=== PATIENT | male | born 1970 | race Caucasian/White ===

== ENCOUNTER 2019-12-06 14:28 | Outpatient (REF) | payer BC, SELFPAY | END 2019-12-06 14:29 | disposition home or self-care (01) | LOC: HO.LAB 14:28 | PROVIDERS: Visit Provider Internal Medicine | DX: Z20.828 Contact with and (suspected) exposure to other viral communicable diseases (principal) | CPT/HCPCS: 87635 ==

== ENCOUNTER → 2022-01-12 15:49 | Outpatient (REF) | payer BC, SELFPAY | LOC: HO.SL 15:49 | PROVIDERS: Visit Provider Internal Medicine | DX: G47.33 Obstructive sleep apnea (adult) (pediatric) (principal); R06.83 Snoring | CPT/HCPCS: 95806 ==

== ENCOUNTER 2024-07-31 12:59 | Outpatient (AMB) | payer BC, SELFPAY ==
--- NOTE | 2024-07-31 13:07 | MHC.PC.OV ---
Intake Visit Reasons: L knee pain Allergies shellfish derived [SHELLFISH DERIVED] Allergy (Unknown, Unverified 03/19/20 11:40) CHEST PAIN Medication List - Last Reconciled 07/31/24 by LIZZY Osullivan diclofenac sodium 1% (Voltaren Arthritis Pain) 4 grams topical QID PRN ibuprofen 800 mg PO Q8H PRN tramadol 50 mg PO Q8H PRN HPI HPI Comments History of Present Illness Details 53 year old male presents to the office for evaluation. He is reporting pain in the L knee ongoing for about a week. He had a similar issue about 7 months ago after running a race which improvement with naproxen and icy hot. However, this current episode of knee pain has not been improving despite conservative therapies. He had played hockey about 1 week ago and then did some difficult hiking over the weekend. Since then, has had a constant aching pain that waxes and wanes in severity and can be very uncomfortable. 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 He denies any direct traumatic injury. Denies any instability in the knee. No weakness or paresthesias in the lower extremity. Reports pain is primarily located in the bilateral joint spaces, more prominent in the medial aspect. He denies any exacerbation of pain on stairs but does feel the pain is worse when twisting [id number]. He is concerned because he will be driving to [place] with his sons and given the long driving stretches, he is worried about the pain. ROS: General: No fevers, malaise, unintentional weight loss MSK: see hpi Neuro: No weakness, paresthesias Skin: No rashes or lesions EXAM: Constitutional - Awake and Alert, No apparent distress Eyes - PERRLA, EOMI Cardiovascular - S1S2, RRR, No edema Respiratory - Normal lung expansion, Normal respiratory effort, No respiratory distress, CTA bilaterally Extremities - no calf tenderness bilaterally, no swelling Musculoskeletal - Normal inspection. L knee-no erythema, warmth, swelling, effusion. Tenderness to palpation along the bilateral joint space. Negative Sandra testing. No instability noted with anterior posterior drawer. Full flexion-extension Skin - Warm/Dry Neurological - Alert & oriented x3, 5/5 strength ble Psychological - Appropriate affect [facility] Medical History (Updated 07/31/24 @ 13:44 by LIZZY Osullivan) Familial hypercholesteremia Obstructive sleep apnea No significant past medical history Surgical History (Updated 03/19/20 @ 11:40 by Roxy Jimenez RN) History of left nephrectomy Social History Are you a primary assisted living care manager to a significant other at home: No Do you presently have visiting nurse or other home services: No Coding Level of Care Code New Pt Level 3 (37441) Complex EM visit Add On G2211 Diagnoses Left knee pain M25.562 Assessment & Plan Assessment & Plan (1) Left knee pain: Code(s): M25.562 - Pain in left knee Category: Medical Plan: XR left knee ordered. Recommend NSAIDs or topical diclofenac as well as tylenol prn. Recommend heat/ice. Referred to PT. Given short course of tramadol to use only as needed for severe pain. Masspat reviewed and is appropriate. Advised against driving while taking this medication- reports his sons can drive should he need this. Will also check uric level Plan Follow up for annual. Labs ordered to be completed today. Follow up with PT. Meds as prescribed. XR orderd Orders: Orders PT Evaluation and Treatment 07/31/24 M25.562 - Pain in left knee XR knee LT 3V 07/31/24 M25.562 - Pain in left knee Basic Metabolic Panel 07/31/24 E78.01 - Familial hypercholesterolemia, M25.562 - Pain in left knee Complete Blood Count Auto Diff 07/31/24 E78.01 - Familial hypercholesterolemia, M25.562 - Pain in left knee Hemoglobin A1c 07/31/24 E78.01 - Familial hypercholesterolemia, M25.562 - Pain in left knee Lipid Panel 07/31/24 E78.01 - Familial hypercholesterolemia, M25.562 - Pain in left knee Liver Panel 07/31/24 E78.01 - Familial hypercholesterolemia, M25.562 - Pain in left knee Prostate Specific Antigen 07/31/24 E78.01 - Familial hypercholesterolemia, M25.562 - Pain in left knee Uric Acid 07/31/24 E78.01 - Familial hypercholesterolemia, M25.562 - Pain in left knee Medications: New ibuprofen 800 mg PO Q8H PRN 90 tabs 0RF pain tramadol 50 mg PO Q8H PRN 15 tabs 0RF moderate pain (scale score 5-6) diclofenac sodium 1% (Voltaren Arthritis Pain) apply to single knee, ankle, foot; for foot includes sole/toes/top of foot Do not use together with ibuprofen 4 grams topical QID PRN 100 grams 0RF knee pain
--- OUTSIDE RECORDS SUMMARY | 2024-07-31 15:14 | XMS_ITS | Patient Health Record ---
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 for 1 day(s) 03/06/2020 Active Immunizations Vaccine Route Administration Date Status Comme nts Influenza Unknown 10/23/2019 Administered Social History Tobacco Use: Social History Observation Description Date Details (start date - stop date) Never Smoker NA - NA Tobacco Use/Smoking Question Answer Notes Patient is a nonsmoker Alcohol Screen Question Answer Notes Did you have a drink contain ing alcohol in the past year? Yes How often did you have a dri nk containing alcohol in the past year? Never (0 point) How many drinks did you have on a typical day when you were drinking in the past year? 1 or 2 drinks (0 point) How often did you have 6 or more drinks on one occasion in the past year? Never (0 point) Points 0 Interpretation Negative Problems Problem Type SNOMED Code ICD Code Onset Dates Problem Status W/U Status Risk Notes Problem 590187828 Colon cancer screening (Z12.11) Active confirmed Problem 866039112 Encounter for other preprocedural examination (Z01.818) Active confirmed Plan Of Treatment Future Test Test Name Order Date COLONOSCOPY 03/06/2020 Insurance Providers Payer Name Payer Address Payer Phone Subscriber Number Group Number Insured Name Patient Relationship to Insured Coverage Start Date Coverage End Date [facility] [address] [place], [place] [id number] [phone] [id number] ELEANOR SCHMITZ Self - patient is the insured Medical (General) History Medical History History ICD Code Denies [place],DM,CVA,Lung disease,renal dise ase Surgical History Surgery Date(Month/Year) kidney donor 2000
== END 2024-07-31 13:32 | disposition home or self-care (01) ==
LOC: HO.HMCHD 12:59
PROVIDERS: PCP Physician Assistant; Visit Provider Physician Assistant
DX: M25.562 Pain in left knee (principal)

== ENCOUNTER 2024-08-02 06:05 | Outpatient (REF) | payer BC, SELFPAY ==
--- NOTE | ~2024-08-02 | XR_ITS ---
CLINICAL HISTORY: M25.562 - Pain in left knee 3 view left knee Comparison: None Findings: No acute fracture or dislocation is identified. Soft tissue structures appear within normal limits. IMPRESSION: No acute osseous abnormality is identified. This document has been electronically signed by: Piotr Aguilar on 08/02/2024 07:17:40
--- OUTSIDE RECORDS SUMMARY | 2024-08-02 06:09 | XMS_ITS | Patient Health Record ---
Author Organization 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 Name Role Phone Bennett Meléndez MD Primary Care Provider Unavaila Jose Veras Jr Unavailable Reason For Referral No Information Medications Medication [...] Problem Status W/U Status Risk Notes Problem [id number] Colon cancer screening (Z12.11) Active confirmed Problem 300158040 Encounter for other preprocedural examination (Z01.818) Active confirmed Plan Of Treatment Future Test Test Name Order Date COLONOSCOPY 03/06/2020 Insurance Providers Payer Name Payer Address Payer Phone Subscriber Number Group Number Insured Name Patient Relationship to Insured Coverage Start Date Coverage End Date [facility] [address] [place], [place] [id number] ELEANOR SCHMITZ Self - patient is the insured Medical (General) History Medical History History ICD Code Denies [place],DM,CVA,Lung disease,renal dise ase Surgical History Surgery Date(Month/Year) kidney donor 2000
[2024-08-02 06:28] LABS: MANUAL DIFF FLAG NO
[2024-08-02 07:21] LABS: Basophils Percent Auto 0.4 % (0-2); Eosinophils Absolute Auto 0.3 X10*3/uL (0.0-0.4); Eosinophils Percent Auto 4.5 % (0-4); Hematocrit 40.8 % (42.0-52.0); Hemoglobin 14.1 g/dl (14.0-18.0); Imm Gran Abs Auto 0.03 X10*3/uL (0.00-0.03); Imm Gran Pct Auto 0.4 % (0.0-0.4); Lymphocytes Absolute Auto 2.4 X10*3/uL (1.2-4.9); Lymphocytes Percent Auto 33.1 % (20-40); Mean Corpuscular HGB Conc 34.6 g/dl (31.0-36.0); Mean Corpuscular Hemoglobin 29.4 pg (27.0-33.0); Mean Platelet Volume 8.9 fL (9.4-12.4); Monocytes Absolute Auto 0.6 X10*3/uL (0.1-1.2); Monocytes Percent Auto 8.2 % (2-11); Neutrophils Absolute Auto 3.8 x10*3/uL (2.0-8.3); Neutrophils Percent Auto 53.4 % (45-73); Platelet Count 253 X10*3/uL (160-400); Red Cell Distribution Width 12.6 % (11.0-16.0); White Blood Count 7.2 X10*3/uL (4.8-10.8)
[2024-08-02 07:30] LABS: Estimated Average Glucose 111 mg/dL; Hemoglobin A1C 136.1693 umol/L; Hemoglobin A1c % 5.5 % (<6.0); Total Hemoglobin (HGBA1C) 3751.3123 umol/L
[2024-08-02 07:47] LABS: Alanine Aminotransferase 25 U/L (0-40); Albumin Level 4.3 g/dL (3.5-5.0); Alkaline Phosphatase 104 U/L (39-117); Anion Gap 12 (12-20); Aspartate Amino Transferase 22 U/L (5-37); Bilirubin Direct 0.1 mg/dL (0.0-0.5); Bilirubin Total 0.4 mg/dL (0.0-1.0); Blood Urea Nitrogen 21 mg/dL (9-16); Calcium 9.2 mg/dL (8.4-10.2); Carbon Dioxide 28 mmol/L (22-29); Chloride 104 mmol/L (96-108); Cholesterol 321 mg/dL (<200); Estimated Glomerular Filt Rate > 60; Glucose Random 95 mg/dL (60-115); HDL Cholesterol 46 mg/dL (>40); LDL Cholesterol Calculated 230 mg/dL (<100); Potassium 4.3 mmol/L (3.3-5.1); Sodium 140 mmol/L (135-145); Total Protein 7.1 g/dL (6.5-8.0); Triglycerides 225 mg/dL (<150); Uric Acid 6.1 mg/dL (3.4-7.0)
[2024-08-02 08:06] LABS: Prostate Specific Antigen 3.55 ng/mL (<0.05-4.0)
== END 2024-08-02 06:06 | disposition home or self-care (01) ==
LOC: HO.XRAY 06:05
PROVIDERS: PCP Physician Assistant; Visit Provider Physician Assistant
DX: M25.562 Pain in left knee (principal); E78.01 Familial hypercholesterolemia
CPT/HCPCS: 36415; 73562; 80048; 80061; 80076; 83036; 84153; 84550; 85025

== ENCOUNTER → 2024-08-02 06:28 | Outpatient (BNV) | payer BC, SELFPAY | PROVIDERS: PCP Physician Assistant; Visit Provider Radiology Vascular & Interventional Radiology | DX: M25.562 Pain in left knee (principal) | CPT/HCPCS: 73562 ==